=== PATIENT | male | born 1995 | race Caucasian/White ===

== ENCOUNTER 2023-11-26 11:13 | Outpatient (OUT) | payer OTHER, SELFPAY ==
[2023-11-26 12:49] LABS: Valproic Acid 101.7 ug/mL (50.0-100.0)
[2023-11-27 04:07] LABS: Carbamazepine(Tegretol),S 9.2 ug/mL (4.0-12.0)
[2023-11-28 08:12] LABS: Levetiracetam (Keppra), S 35.9 ug/mL (10.0-40.0)
== END 2023-11-26 11:14 | disposition home or self-care (01) ==
LOC: LAB 11:13
PROVIDERS: PCP Family Medicine; Visit Provider Psychiatry & Neurology Neurology
DX: G40.919 Epilepsy, unspecified, intractable, without status epilepticus (principal)
CPT/HCPCS: 36415; 80156; 80164; 80177